=== PATIENT | female | born 1940 | race Caucasian/White ===

== ENCOUNTER 2020-08-04 20:47 | Inpatient (IN) | payer MEDICARE ==
[~2020-08-04] VITALS: Ht 167.6 cm; Wt 61.5 kg
--- NOTE | 2020-08-04 21:16 | NUR ---
ERP AT BEDSIDE FOR ASSESSMENT AT THIS TIME
[2020-08-04 22:06] LABS: ALBUMIN 2.8 g/dL (3.4-5.0); ANION GAP 4 mmol/L (5-15); CALCIUM 8.3 mg/dL (8.5-10.1); CHLORIDE 101 mmol/L (98-107); CREATININE 1.47 mg/dL (0.55-1.02)
[2020-08-04 22:10] LABS: TROPONIN I < 0.015 ng/mL (0.000-0.045)
--- NOTE | 2020-08-04 22:13 | NUR ---
Pt states she was trying to get to the bathroom when she fell. Pt states she does not remember what happend. Pt states she had staff with her, but she ended up on the floor. Pt states she has not been feeling well lately. Pt to room. A&O x 4. Pt on monitor. Pt states she really needs to have a BM. Pt assited to the BSC and tolerated well. Pt back to bed. Warm blanket given. Will monitor. EKG done.
[2020-08-04 22:18] LABS: BASOPHILS % (AUTO) 1 % (0-1); EOSINOPHILS % (AUTO) 0 % (1-7); LYMPHOCYTES % (AUTO) 5 % (22-44); MD NO; MEAN CORPUSCULAR HGB CONC 33.4 g/dL (32.4-35.8); MEAN PLATELET VOLUME 8.4 fL (7.4-10.4); MONOCYTES % (AUTO) 7 % (2-9); NEUTROPHILS % (AUTO) 88 % (42-75); PLATELET COUNT 196 x10^3/uL (130-400); RED BLOOD COUNT 3.66 x10^6/uL (3.82-5.3); RED CELL DISTRIBUTION WIDTH 16.2 % (9.6-15.2)
--- NOTE | 2020-08-04 23:50 | NUR ---
Pt to BSC with assit x 2. Pt states being SOB, Pt slightly unsteady on feet and unbalanced. Provider aware. Pt unable to roadtest d/t difficulty getting to BSC.
[2020-08-05] MEDS ORDERED: LABETALOL 5MG/ML, 20ML ONE (00:18)
[2020-08-05] MEDS ORDERED: ASPIRIN 325 MG TABLET ONE (00:18)
[2020-08-05] MEDS ORDERED: ASPIRIN 325 MG TABLET PO ONE (00:30)
[2020-08-05] MEDS ORDERED: LABETALOL 5MG/ML, 20ML IVPush ONE (00:30)
[2020-08-05] MEDS ORDERED: POTASSIUM CHLORIDE 20 MEQ TAB.ER.PRT ONE (00:44)
[2020-08-05] MEDS ORDERED: POTASSIUM CHLORIDE 20 MEQ PACKET ONE (00:52)
[2020-08-05] MEDS ORDERED: POTASSIUM CHLORIDE 20 MEQ TAB.ER.PRT PO ONE ×2 (01:00→02:00)
--- NOTE | 2020-08-05 01:23 | NUR ---
REPORT TO [facility] PT READY FOR TRANSFER TO 52
[2020-08-05 01:38] VITALS: BP 147/102
[2020-08-05] MEDS ORDERED: OXYcodone IR 5MG TABLET PO PRN (02:00)
[2020-08-05] MEDS ORDERED: POLYETHYLENE GLYCOL 17 GM PACKET PO PRN (02:00)
[2020-08-05] MEDS ORDERED: PROMETHAZINE 25 MG/ML, 1ML IM PRN (02:00)
[2020-08-05] MEDS ORDERED: ACETAMINOPHEN 325 MG TABLET PO PRN (02:00)
[2020-08-05] MEDS ORDERED: SODIUM CHLORIDE 0.9% 1,000 ML IV SCH (02:00)
[2020-08-05] MEDS ORDERED: hydrALAzine 20 MG/ML, 1ML IVPush PRN (02:00)
[2020-08-05] MEDS ORDERED: ALBUTEROL/IPRATROPIUM 2.5MG/0.5MG, 3 ML NPPB SCH (02:00)
[2020-08-05] MEDS ORDERED: ONDANSETRON 2MG/ML, 2ML IVPush PRN (02:00)
[2020-08-05] MEDS ORDERED: DOCUSATE 100 MG CAPSULE PO PRN (02:00)
[2020-08-05] MEDS ORDERED: BISACODYL 10 MG SUPP PR PRN (02:00)
[2020-08-05] MEDS ORDERED: ONDANSETRON ODT 4 MG PO PRN (02:00)
[2020-08-05] MEDS: FUROSEMIDE 20 MG/2 ML IV SCH ×3 (03:56→18:01)
[2020-08-05] MEDS: ENOXAPARIN 30 MG/0.3 ML SQ SCH (03:59)
[2020-08-05] MEDS ORDERED: AMLO-150 PO (05:16)
[2020-08-05] MEDS ORDERED: ATOR40TA78 PO (05:16)
[2020-08-05] MEDS ORDERED: ASPIRIN 325 MG TABLET EC PO SCH (06:00)
[2020-08-05 06:56] VITALS: BP 165/118
[2020-08-05 07:13] LABS: TROPONIN I < 0.015 ng/mL (0.000-0.045)
[2020-08-05 07:28] LABS: ALANINE AMINOTRANSFERASE 41 U/L (12-78); ALBUMIN 2.8 g/dL (3.4-5.0); ANION GAP 6 mmol/L (5-15); CALCIUM 8.8 mg/dL (8.5-10.1); CHLORIDE 100 mmol/L (98-107); CREATININE 1.61 mg/dL (0.55-1.02)
[2020-08-05 07:30] LABS: ALKALINE PHOSPHATASE 123 U/L (45-117); BILIRUBIN,TOTAL 0.4 mg/dL (0.2-1.0); TOTAL PROTEIN 5.5 g/dL (6.4-8.2)
[2020-08-05] MEDS: ALBUTEROL-IPRATROPIUM MDI INH INH SCH ×4 (07:40→19:45)
[2020-08-05 08:03] LABS: TROPONIN I < 0.015 ng/mL (0.000-0.045)
[2020-08-05 10:03] VITALS: BP 132/89
[2020-08-05] MEDS ORDERED: LIDOCAINE 1%, 10ML ONE (12:07)
[2020-08-05] MEDS ORDERED: ASPI81TA45 PO (12:23)
[2020-08-05] MEDS ORDERED: FLUT9.9S NS (12:38)
[2020-08-05] MEDS ORDERED: METO25TA4 PO (12:38)
[2020-08-05] MEDS ORDERED: SODI1TAB PO (12:38)
[2020-08-05] MEDS ORDERED: SENN1TAB59 PO (12:38)
[2020-08-05] MEDS ORDERED: SERT-237 PO (12:38)
[2020-08-05] MEDS ORDERED: CHOL100011 PO (12:38)
[2020-08-05] MEDS ORDERED: GUAI-110 PO (12:38)
[2020-08-05] MEDS ORDERED: FLUT1BLS9 INH (12:38)
[2020-08-05 13:31] VITALS: BP 115/83
[2020-08-05 16:46] LABS: MICROSCOPIC AUTO
[2020-08-05] MEDS ORDERED: CARVEDILOL 3.125 MG TABLET PO SCH (18:00)
[2020-08-05] MEDS ORDERED: METOPROLOL TARTRATE 25 MG TAB PO SCH (21:00)
[2020-08-05] MEDS ORDERED: SALMETEROL INH SCH (21:00)
[2020-08-05] MEDS ORDERED: FLUTICASONE PROPION INH SCH (21:00)
[2020-08-05 21:05] VITALS: BP 136/98
[2020-08-05] MEDS: GUAIFENESIN HOMEMEDPO SCH (21:22)
[2020-08-05] MEDS: PSEUDOEPHEDRNE HCL HOMEMEDPO SCH (21:22)
[2020-08-05] MEDS: ATORVASTATIN 40 MG TABLET PO SCH (21:23)
[2020-08-05] MEDS: SERTRALINE 50MG TABLET PO SCH (21:23)
[2020-08-06 01:47] VITALS: BP 145/106
[2020-08-06] MEDS ORDERED: DILTIAZEM 5 MG/ML, 5ML IVPush ONE (02:00)
[2020-08-06 02:36] VITALS: BP 125/81
[2020-08-06] MEDS: ENOXAPARIN 30 MG/0.3 ML SQ SCH (04:33)
[2020-08-06 06:07] LABS: BASOPHILS % (AUTO) 1 % (0-1); EOSINOPHILS % (AUTO) 0 % (1-7); LYMPHOCYTES % (AUTO) 6 % (22-44); MEAN CORPUSCULAR HGB CONC 33.3 g/dL (32.4-35.8); MEAN PLATELET VOLUME 8.4 fL (7.4-10.4); MONOCYTES % (AUTO) 5 % (2-9); NEUTROPHILS % (AUTO) 87 % (42-75); PLATELET COUNT 188 x10^3/uL (130-400); RED BLOOD COUNT 3.69 x10^6/uL (3.82-5.3); RED CELL DISTRIBUTION WIDTH 16.8 % (9.6-15.2)
[2020-08-06 06:09] LABS: MD NO
[2020-08-06 06:20] LABS: ALBUMIN 2.8 g/dL (3.4-5.0); ANION GAP 8 mmol/L (5-15); CALCIUM 8.9 mg/dL (8.5-10.1); CHLORIDE 100 mmol/L (98-107)
[2020-08-06 06:27] LABS: ALANINE AMINOTRANSFERASE 36 U/L (12-78); ALKALINE PHOSPHATASE 120 U/L (45-117); BILIRUBIN,TOTAL 0.6 mg/dL (0.2-1.0); CHOL/HDL RATIO 1.6; CHOLESTEROL, TOTAL 98 mg/dL (140-239); CREATININE 1.58 mg/dL (0.55-1.02); HDL CHOL % 63 % (28-40); HDL CHOLESTEROL (DIRECT) 62 mg/dL (40-60); LDL CHOLESTEROL,CALCULATED 24 mg/dL (54-169); LDL/HDL RATIO 0.4 (0.5-3.0); TOTAL PROTEIN 5.5 g/dL (6.4-8.2); TRIGLYCERIDES 60 mg/dL (50-200); VLDL CHOLESTEROL 12 mg/dL (0-25)
[2020-08-06] MEDS: ALBUTEROL-IPRATROPIUM MDI INH INH SCH ×4 (07:00→19:35)
[2020-08-06 07:49] VITALS: BP 158/105
[2020-08-06] MEDS ORDERED: MAGNESIUM SULFATE PMX 2GM/50ML 50 ML IV ONE (08:00)
[2020-08-06] MEDS: ASPIRIN 81 MG TABLET EC PO SCH (08:47)
[2020-08-06] MEDS: FUROSEMIDE 20 MG/2 ML IV SCH ×2 (08:50→16:58)
[2020-08-06] MEDS: GUAIFENESIN HOMEMEDPO SCH ×2 (08:51→21:21)
[2020-08-06] MEDS: PSEUDOEPHEDRNE HCL HOMEMEDPO SCH ×2 (08:51→21:21)
[2020-08-06] MEDS: SENNA/DOCUSATE TABLET PO SCH (08:53)
[2020-08-06] MEDS: FLUTICASONE NASAL SPRAY 16GM NAS SCH (09:00)
[2020-08-06] MEDS ORDERED: METOPROLOL TARTRATE 25 MG TAB PO SCH ×3 (09:00→21:00)
[2020-08-06] MEDS: FLUTICASONE/VILANTEROL 200-25MCG/INH INH SCH (09:00)
[2020-08-06 13:53] VITALS: BP 130/98
[2020-08-06] MEDS ORDERED: METHOCARBAMOL 500 MG TABLET PO PRN (17:00)
[2020-08-06] MEDS: METOPROLOL TARTRATE 25 MG TAB PO SCH ×2 (17:46→21:21)
[2020-08-06 19:32] VITALS: BP 131/90
[2020-08-06] MEDS: SERTRALINE 50MG TABLET PO SCH (21:21)
[2020-08-06] MEDS: ATORVASTATIN 40 MG TABLET PO SCH (21:21)
[2020-08-07 01:15] VITALS: BP 130/90
[2020-08-07] MEDS: FUROSEMIDE 20 MG/2 ML IV SCH (01:58)
[2020-08-07] MEDS: ENOXAPARIN 30 MG/0.3 ML SQ SCH (04:29)
[2020-08-07 06:06] LABS: CHLORIDE 100 mmol/L (98-107)
[2020-08-07 06:11] LABS: ANION GAP 5 mmol/L (5-15); CALCIUM 8.9 mg/dL (8.5-10.1); CREATININE 1.75 mg/dL (0.55-1.02)
[2020-08-07] MEDS: ALBUTEROL-IPRATROPIUM MDI INH INH SCH ×4 (07:20→20:00)
[2020-08-07] MEDS: FLUTICASONE/VILANTEROL 200-25MCG/INH INH SCH (07:25)
[2020-08-07 08:05] VITALS: BP 160/106
[2020-08-07] MEDS: ASPIRIN 81 MG TABLET EC PO SCH (08:32)
[2020-08-07] MEDS: METOPROLOL TARTRATE 25 MG TAB PO SCH ×3 (08:32→21:32)
[2020-08-07] MEDS: SENNA/DOCUSATE TABLET PO SCH (08:33)
[2020-08-07] MEDS: FLUTICASONE NASAL SPRAY 16GM NAS SCH (08:33)
[2020-08-07] MEDS: PSEUDOEPHEDRNE HCL HOMEMEDPO SCH ×2 (08:39→21:32)
[2020-08-07] MEDS: GUAIFENESIN HOMEMEDPO SCH ×2 (08:39→21:32)
[2020-08-07 14:54] VITALS: BP 136/91
[2020-08-07 20:51] VITALS: BP 132/88
[2020-08-07] MEDS: ATORVASTATIN 40 MG TABLET PO SCH (21:31)
[2020-08-07] MEDS: SERTRALINE 50MG TABLET PO SCH (21:31)
[2020-08-08 01:31] VITALS: BP 133/84
[2020-08-08] MEDS: ENOXAPARIN 30 MG/0.3 ML SQ SCH (04:16)
[2020-08-08 05:38] LABS: CALCIUM 8.6 mg/dL (8.5-10.1); CHLORIDE 100 mmol/L (98-107)
[2020-08-08 05:42] LABS: ANION GAP 4 mmol/L (5-15); CREATININE 1.64 mg/dL (0.55-1.02)
[2020-08-08] MEDS: ALBUTEROL-IPRATROPIUM MDI INH INH SCH ×4 (07:10→19:46)
[2020-08-08] MEDS: FLUTICASONE/VILANTEROL 200-25MCG/INH INH SCH (07:10)
[2020-08-08 08:39] VITALS: BP 142/102
[2020-08-08] MEDS: SENNA/DOCUSATE TABLET PO SCH (08:43)
[2020-08-08] MEDS: FUROSEMIDE 40 MG TABLET PO SCH (08:44)
[2020-08-08] MEDS: POTASSIUM CHLORIDE 10 MEQ TABLET.ER PO SCH (08:45)
[2020-08-08] MEDS: METOPROLOL TARTRATE 25 MG TAB PO SCH ×2 (08:45→20:40)
[2020-08-08] MEDS: PSEUDOEPHEDRNE HCL HOMEMEDPO SCH ×2 (08:46→20:36)
[2020-08-08] MEDS: FLUTICASONE NASAL SPRAY 16GM NAS SCH (08:46)
[2020-08-08] MEDS: GUAIFENESIN HOMEMEDPO SCH ×2 (08:46→20:36)
[2020-08-08] MEDS: ASPIRIN 81 MG TABLET EC PO SCH (08:48)
[2020-08-08 14:20] VITALS: BP 147/100
[2020-08-08 19:44] VITALS: BP 147/100
[2020-08-08] MEDS: SERTRALINE 50MG TABLET PO SCH (20:41)
[2020-08-08] MEDS: ATORVASTATIN 40 MG TABLET PO SCH (20:41)
[2020-08-09 01:09] VITALS: BP 149/96
[2020-08-09] MEDS: ENOXAPARIN 30 MG/0.3 ML SQ SCH (04:19)
[2020-08-09 04:55] LABS: ANION GAP 3 mmol/L (5-15); CALCIUM 8.7 mg/dL (8.5-10.1); CHLORIDE 101 mmol/L (98-107)
[2020-08-09] MEDS: FLUTICASONE/VILANTEROL 200-25MCG/INH INH SCH (06:45)
[2020-08-09] MEDS: ALBUTEROL-IPRATROPIUM MDI INH INH SCH ×3 (06:45→13:32)
[2020-08-09 08:12] VITALS: BP 152/106
[2020-08-09] MEDS: SENNA/DOCUSATE TABLET PO SCH (08:35)
[2020-08-09] MEDS: POTASSIUM CHLORIDE 10 MEQ TABLET.ER PO SCH (08:35)
[2020-08-09] MEDS: FUROSEMIDE 40 MG TABLET PO SCH (08:35)
[2020-08-09] MEDS: ASPIRIN 81 MG TABLET EC PO SCH (08:35)
[2020-08-09] MEDS: METOPROLOL TARTRATE 25 MG TAB PO SCH (08:35)
[2020-08-09] MEDS: PSEUDOEPHEDRNE HCL HOMEMEDPO SCH (08:36)
[2020-08-09] MEDS: GUAIFENESIN HOMEMEDPO SCH (08:36)
[2020-08-09] MEDS: FLUTICASONE NASAL SPRAY 16GM NAS SCH (08:39)
[2020-08-09] MEDS ORDERED: ACET325T26 PO (09:06)
[2020-08-09] MEDS ORDERED: FURO40TA6 PO (09:06)
[2020-08-09] MEDS ORDERED: POTA10TA5 PO (09:06)
[2020-08-09] MEDS ORDERED: ENOX30DI3 SQ (09:06)
[2020-08-09] MEDS ORDERED: METO25TA35 PO (09:06)
== END 2020-08-09 15:00 | DRG 291 ==
LOC: ED 23:14 → EDIP 08-05 01:14 → 5SO 08-05 01:40
PROVIDERS: ADMIT Internal Medicine; ATTEND Hospitalist
PROC: 0W9B3ZZ Drainage of Left Pleural Cavity, Percutaneous Approach (ICD-10-PCS; principal; 2020-08-05)
DX: I13.0 Hypertensive heart and chronic kidney disease with heart failure and stage 1 through stage 4 chronic kidney disease, or unspecified chronic kidney disease (principal); I50.23 Acute on chronic systolic (congestive) heart failure; J96.01 Acute respiratory failure with hypoxia; N17.9 Acute kidney failure, unspecified; J91.8 Pleural effusion in other conditions classified elsewhere; E87.6 Hypokalemia; D64.9 Anemia, unspecified; I08.1 Rheumatic disorders of both mitral and tricuspid valves; I27.20 Pulmonary hypertension, unspecified; I48.91 Unspecified atrial fibrillation; I73.9 Peripheral vascular disease, unspecified; R55 Syncope and collapse; R53.81 Other malaise; I50.82 Biventricular heart failure; Z66 Do not resuscitate; J44.9 Chronic obstructive pulmonary disease, unspecified; N18.9 Chronic kidney disease, unspecified; Z72.0 Tobacco use; Z95.820 Peripheral vascular angioplasty status with implants and grafts
CPT/HCPCS: 32555; 36415; 71045; 80048; 80053; 80061; 81001; 82040; 83036; 83605; 83615; 83735; 83880; 84100; 84157; 84484; 85025; 87070; 87086; 87205; 88112; 89051; 93005; 93306; 93880; 93922; 94640; 96374; G0378; J1650; J1940; J3475; J7030